=== PATIENT | female | born 1975 | race Hispanic/Latino ===

== ENCOUNTER 2017-10-11 14:21 | Observation (INO) | payer MEDICAID ==
[~2017-10-11] VITALS: Ht 160 cm; Wt 87.1 kg
[2017-10-11] MEDS ORDERED: LACTATED RINGERS 1000ML 1,000 ML IV SCH (15:00)
== END 2017-10-11 16:55 | disposition home or self-care (01) ==
LOC: LDH 14:21
PROVIDERS: ADMIT Specialist; ATTEND Specialist
DX: O26.893 Other specified pregnancy related conditions, third trimester (principal); O09.523 Supervision of elderly multigravida, third trimester; M79.1 Myalgia; Z3A.33 33 weeks gestation of pregnancy
CPT/HCPCS: 76819; G0378 ×4; J7120; 96360